=== PATIENT | female | born 1980 | race American Indian/Alaskan Native ===

== ENCOUNTER 2017-02-09 17:09 | Emergency (ER) | payer MEDICAID ==
--- NOTE | 2017-02-09 17:25 | EDM.PDOC ---
ED HISTORY OF PRESENT ILLNESS - General Chief Complaint: Chest Pain Stated Complaint: CHEST PAIN Time Seen by Provider: 02/09/17 17:24 Source of Information: Reports: Patient, RN, RN notes reviewed History Limitations: Reports: No limitations - History of Present Illness INITIAL COMMENTS - FREE TEXT/NARRATIVE: Onset of low midline chest and epigastric pain one hour prior to arrival to ER at approximately 1 hour after eating salad and cheese soup for dinner. Describes pain or spasms or cramping. Denies radiating pain. Admits to mild nausea. Symptom Onset Date: 02/09/17 Timing/Duration: Reports: Hour(s): (1) Severity: moderate Location, General: Reports: other (epigastric) Quality: Reports: Ache Improves with: Reports: None Worsens with: Reports: None Associated Symptoms (General): Reports: no other symptoms - Related Data Allergies/ADRs: Allergies Allergy/AdvReac Type Severity Reaction Status Date / Time tetracycline [Tetracycline] Allergy Nausea Verified 02/09/17 17:39 Home Meds: Home Meds traZODone HCl [Trazodone HCl] 1 tab PO BEDTIME 08/17/15 [History] Multivitamins [Tab-A-Leo] 1 tab PO DAILY 03/03/16 [History] Cephalexin [Keflex] 0 mg PO ASDIRECTED 02/09/17 [History] Past Medical History - Past Health History Medical/Surgical History: Denies Medical/Surgical History Gastrointestinal History: Reports: GERD Other Gastrointestinal History: constipation with rectal bleed 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: Psychiatric History: Reports: Anxiety, Depression Other Dermatologic History: Rosacea, acne - Infectious Disease History Infectious Disease History: Reports: Chicken pox - Past Surgical History GI Surgical History: Reports: Cholecystectomy, Colonoscopy Social & Family History - Family History Family Medical History: Noncontributory - Tobacco Use Smoking Status *Q: Current Every Day Smoker Years of Tobacco use: 15 Packs/Tins Daily: 0.5 Used Tobacco, but Quit: No Second Hand Smoke Exposure: Yes - Alcohol Use Days Per Week of Alcohol Use: 0 - Recreational Drug Use Recreational Drug Use: No ED ROS GENERAL - Review of Systems Review Of Systems: ROS reveals no pertinent complaints other than HPI. ED EXAM, GENERAL - Physical Exam Exam: See Below Exam Limited By: No limitations General Appearance: alert, WD/WN, no apparent distress Eye Exam: bilateral eye: normal inspection Ears: normal external exam, normal canal, hearing grossly normal, normal TMs Nose: normal inspection, normal mucosa, no blood Throat/Mouth: Normal inspection, Normal lips, Normal teeth, Normal gums, Normal oropharynx, Normal voice, No airway compromise Head: atraumatic, normocephalic Neck: normal inspection, supple, non-tender, full range of motion Respiratory/Chest: no respiratory distress, lungs clear, normal breath sounds, no accessory muscle use, chest non-tender Cardiovascular: normal peripheral pulses, regular rate, rhythm, no edema, no gallop, no JVD, no murmur, no rub GI/Abdominal: other (mild epigastric tenderness.) Back Exam: normal inspection, full range of motion, NT Extremities: normal inspection, normal range of motion, non-tender, normal capillary refill, no pedal edema Neurological: alert, oriented, CN II-XII intact, normal cognition, normal gait, normal reflexes, no motor/sensory deficits Psychiatric: normal affect, normal mood Skin Exam: Warm, Dry, Intact, Normal color, No rash EKG INTERPRETATION EKG Date: 02/09/17 Time: 17:18 Rhythm: other (sinus rhythm) Rate (beats/min): 67 [place]: normal P-wave: present QRS: other (isolated Q in lead 3.) ST-T: normal QT: normal Course - Vital Signs Last Recorded V/S: Last Vital Signs Temp 36.6 C 02/09/17 17:43 Pulse 71 02/09/17 17:43 Resp 18 02/09/17 17:43 BP 104/56 L 02/09/17 17:43 Pulse Ox 97 02/09/17 17:43 - Orders/Labs/Meds Orders: Active Orders 24 hr Category Date Time Status EKG 12 Lead [EKG Documentation Completion] [RC] STAT Care 02/09/17 17:30 Active Labs: Laboratory Tests 02/09/17 02/09/17 Range/Units 17:55 17:55 WBC 5.5 (5.0-10.0) 10^3/uL RBC 3.78 L (4.2-5.4) 10^6/uL Hgb 11.0 L (12.0-16.0) g/dL Hct 33.3 L (37.0-47.0) % MCV 88.1 (80-100) fL MCH 29.1 (27.0-34.0) pg MCHC 33.0 (33.0-35.0) g/dL Plt Count 245 (150-450) 10^3/uL Neut % (Auto) 57.3 (42.2-75.2) % Lymph % (Auto) 32.9 (20.5-50.1) % [place] % (Auto) 6.5 (2-8) % Eos % (Auto) 2.9 (1.0-3.0) % Baso % (Auto) 0.4 (0.0-1.0) % Sodium 136 (135-145) mmol/L Potassium 3.2 L (3.6-5.0) mmol/L Chloride 104 (101-111) mmol/L Carbon Dioxide 24.0 (21.0-31.0) mmol/L Anion Gap 11.2 BUN 10 (7-18) mg/dL Creatinine 0.7 (0.6-1.3) mg/dL Est Cr Clr Drug Dosing 100.94 mL/min Estimated GFR (MDRD) > 60 BUN/Creatinine Ratio 14.28 Glucose 146 H (74-105) mg/dL Calcium 8.5 (8.4-10.2) mg/dl Total Bilirubin 0.2 (0.2-1.0) mg/dL AST 23 (10-42) IU/L ALT 19 (10-60) IU/L Alkaline Phosphatase 61 (42-121) IU/L Troponin I < 0.02 (0.00-0.02) ng/ml Total Protein 6.4 L (6.7-8.2) g/dl Albumin 3.9 (3.2-5.5) g/dl Globulin 2.5 Albumin/Globulin Ratio 1.56 Amylase 28 (28-100) U/L Lipase 25 (22-51) U/L Departure - Departure Time of Disposition: 18:41 Disposition: Home, Self-Care 01 Condition: good Clinical Impression: Epigastric pain, Esophageal spasm Instructions: Esophageal Spasm Forms: ED Department Discharge Additional Instructions: Low fat and blad diet. Follow up in clinic this week if symptoms do not improve. - My Orders Last 24 Hours: My Active Orders 02/09/17 17:30 EKG 12 Lead [EKG Documentation Completion] [RC] STAT - Assessment/Plan Last 24 Hours: My Active Orders 02/09/17 17:30 EKG 12 Lead [EKG Documentation Completion] [RC] STAT
[2017-02-09 17:47] VITALS: BP 104/56
[2017-02-09 18:19] LABS: CHLORIDE,CL 104 mmol/L (101-111); SODIUM,NA 136 mmol/L (135-145)
--- NOTE | 2017-03-04 13:17 | EKG ---
02/09/2017- AHSAN, APRIL ANDRZEJ - This is a standard 12-lead EKG showing normal sinus rhythm with a heart rate of 67 beats per minute. Normal [place] interval and QRS duration. No significant ST- Tchanges. Normal EKG. [facility] /[id number] [facility]
== END 2017-02-09 19:00 | disposition home or self-care (01) ==
LOC: DL.ED 17:09
DX: K22.4 Dyskinesia of esophagus (principal); K21.9 Gastro-esophageal reflux disease without esophagitis; F41.9 Anxiety disorder, unspecified; F32.9 Major depressive disorder, single episode, unspecified; F17.210 Nicotine dependence, cigarettes, uncomplicated; Z88.1 Allergy status to other antibiotic agents; Z79.899 Other long term (current) drug therapy; Z90.49 Acquired absence of other specified parts of digestive tract
CPT/HCPCS: 36415; 80053; 82150; 83690; 84484; 85025; 93005; 99285

== ENCOUNTER 2017-03-31 10:36 | Emergency (ER) | payer SELFPAY ==
[2017-03-31 11:01] VITALS: BP 115/72
--- NOTE | 2017-03-31 11:14 | EDM.PDOC ---
ED HPI GENERAL MEDICAL PROBLEM - General Chief Complaint: General Stated Complaint: TASTE BUDS ESTUARDO [id number] Time Seen by Provider: 03/31/17 11:14 Source of Information: Reports: Patient History Limitations: Reports: No Limitations - History of Present Illness INITIAL COMMENTS - FREE TEXT/NARRATIVE: Patient has had an inflammed tongue an sensation of change in taste. She notes with sore or spicy food she feels like her tongue chaparro or has a bitter taste. She is on an antibiotic for acne and talked to her provider about this but was told to keep on antibiotic. She has been on a toothpaste with a chris about the time this started. Denies acid reflux, dental problems,excessively dry mouth /tongue. She is a smoker and has tried cutting down on cigarettes. - Related Data Allergies Allergy/AdvReac Type Severity Reaction Status Date / Time tetracycline [Tetracycline] Allergy Nausea Verified 03/31/17 10:58 Home Meds: Home Meds traZODone HCl [Trazodone HCl] 1 tab PO BEDTIME 08/17/15 [History] Multivitamins [Tab-A-Leo] 1 tab PO DAILY 03/03/16 [History] Cephalexin [Keflex] 0 mg PO ASDIRECTED 02/09/17 [History] Past Medical History - Past Health History Medical/Surgical History: Denies Medical/Surgical History HEENT History: Reports: None Cardiovascular History: Reports: None Respiratory History: Reports: None Gastrointestinal History: Reports: GERD Other Gastrointestinal History: constipation with rectal bleed Genitourinary History: Reports: None 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: Musculoskeletal History: Reports: None Neurological History: Reports: None Psychiatric History: Reports: Anxiety, Depression Endocrine/Metabolic History: Reports: None Hematologic History: Reports: None Immunologic History: Reports: None Oncologic (Cancer) History: Reports: None Other Dermatologic History: Rosacea, acne - Infectious Disease History Infectious Disease History: Reports: Chicken Pox - Past Surgical History HEENT Surgical History: Reports: Oral Surgery GI Surgical History: Reports: Cholecystectomy, Colonoscopy Social & Family History - Family History Family Medical History: Noncontributory - Tobacco Use Smoking Status *Q: Current Every Day Smoker Years of Tobacco use: 15 Packs/Tins Daily: 0.7 Used Tobacco, but Quit: No Second Hand Smoke Exposure: Yes - Caffeine Use Caffeine Use: Reports: Coffee - Alcohol Use Days Per Week of Alcohol Use: 0 - Recreational Drug Use Recreational Drug Use: No ED ROS GENERAL - Review of Systems Review Of Systems: See Below Constitutional: Reports: No Symptoms HEENT: Reports: Other (approx 2 month h/o change in taste with bitter taste with spicy and sore foods. she feels tongue has been more swollen and red and taste buds more pronounced.) ED EXAM, GENERAL - Physical Exam Exam: See Below Exam Limited By: No Limitations General Appearance: Alert Ears: Normal External Exam, Normal Canal, Normal TMs Nose: Normal Inspection, Normal Mucosa Throat/Mouth: Normal Inspection, Normal Lips, Normal Teeth, Normal Gums, Normal Oropharynx, Normal Voice, No Airway Compromise Head: Atraumatic, Normocephalic Neck: Normal Inspection, Supple, Non-Tender Neurological: Alert Course - Vital Signs Text/Narrative:: No focal lesions noted on tongue. Tongue appears non-inflammed, no edema. Appears normal geography. Advise many reasons for tongue discomfort. Meds, topical chem such as toothpaste, dental issues, gastric issues. Advise d/c smoking. D/C toothpaste with chris. Avoid spicy and sore foods, anything that inflames tongue. Keep fluid intake up. See pcp if no improvement and consider referral to ENT. Last Recorded V/S: Last Vital Signs Temp 36.8 C 03/31/17 10:59 Pulse 85 03/31/17 10:59 Resp 16 03/31/17 10:59 BP 115/72 03/31/17 10:59 Pulse Ox 98 03/31/17 10:59 Departure - Departure Time of Disposition: 11:26 Disposition: Home, Self-Care 01 Condition: good Clinical Impression: Dysgeusia - Discharge Information Forms: ED Department Discharge Additional Instructions: It can be difficult to determine the exact etiology of tongue discomfort. Advise discontinuing toothpaste with chris. Keep fluid intake up. Avoid sore and spicy foods. See your provider and discuss if persists, you may need an evaluation by ENT.
== END 2017-03-31 11:34 | disposition home or self-care (01) ==
LOC: DL.ED 10:36
DX: R43.2 Parageusia (principal); K21.9 Gastro-esophageal reflux disease without esophagitis; F41.9 Anxiety disorder, unspecified; F32.9 Major depressive disorder, single episode, unspecified; F17.210 Nicotine dependence, cigarettes, uncomplicated; Z88.8 Allergy status to other drugs, medicaments and biological substances; Z79.899 Other long term (current) drug therapy; Z90.49 Acquired absence of other specified parts of digestive tract; Z98.890 Other specified postprocedural states
CPT/HCPCS: 99282

== ENCOUNTER 2017-04-15 19:14 | Emergency (ER) | payer SELFPAY ==
[2017-04-15 20:01] LABS: CHLORIDE,CL 106 mmol/L (101-111); SODIUM,NA 140 mmol/L (135-145)
[2017-04-15 20:43] VITALS: BP 105/63
--- NOTE | 2017-04-15 21:30 | EDM.PDOC ---
ED HPI GENERAL MEDICAL PROBLEM - General Chief Complaint: Chest Pain Stated Complaint: CHEST PAINS, [id number] Time Seen by Provider: 04/15/17 21:15 Source of Information: Reports: Patient - History of Present Illness INITIAL COMMENTS - FREE TEXT/NARRATIVE: c/o severe epigastric pain radiating around to back bilaterally after eating supper of "taco in a bag" brief nausea, no vomiting. No fever or chills. Tried tums but didn't help. At time of exam pain has resolved Onset: Today Location: Reports: Abdomen Epigastric Pain Score (Numeric/FACES): 3 - Related Data Allergies Allergy/AdvReac Type Severity Reaction Status Date / Time tetracycline [Tetracycline] Allergy Nausea Verified 04/15/17 19:26 Home Meds: Home Meds traZODone HCl [Trazodone HCl] 1 tab PO BEDTIME 08/17/15 [History] Multivitamins [Tab-A-Leo] 1 tab PO DAILY 03/03/16 [History] Past Medical History - Past Health History Medical/Surgical History: Denies Medical/Surgical History HEENT History: Reports: None Cardiovascular History: Reports: None Respiratory History: Reports: None Gastrointestinal History: Reports: GERD Other Gastrointestinal History: constipation with rectal bleed Genitourinary History: Reports: None 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: Musculoskeletal History: Reports: None Neurological History: Reports: None Psychiatric History: Reports: Anxiety, Depression Endocrine/Metabolic History: Reports: None Hematologic History: Reports: None Immunologic History: Reports: None Oncologic (Cancer) History: Reports: None Other Dermatologic History: Rosacea, acne - Infectious Disease History Infectious Disease History: Reports: Chicken Pox - Past Surgical History HEENT Surgical History: Reports: Oral Surgery GI Surgical History: Reports: Cholecystectomy, Colonoscopy Social & Family History - Family History Family Medical History: Noncontributory - Tobacco Use Smoking Status *Q: Never Smoker Years of Tobacco use: 15 Packs/Tins Daily: 0.7 Used Tobacco, but Quit: No Second Hand Smoke Exposure: Yes - Caffeine Use Caffeine Use: Reports: Coffee - Alcohol Use Days Per Week of Alcohol Use: 0 - Recreational Drug Use Recreational Drug Use: No ED ROS GENERAL - Review of Systems Review Of Systems: ROS reveals no pertinent complaints other than HPI. ED EXAM, GI/ABD - Physical Exam Exam: See Below Exam Limited By: No Limitations General Appearance: Alert, No Apparent Distress Eyes: Bilateral: EOMI Ears: Normal External Exam Nose: Normal Inspection Respiratory/Chest: No Respiratory Distress, Lungs Clear Cardiovascular: Normal Peripheral Pulses, Regular Rate, Rhythm GI/Abdominal: Normal Bowel Sounds, Soft, Non-Tender. No: Distention, Guarding, Rebound Back Exam: Normal Inspection Course - Vital Signs Last Recorded V/S: Last Vital Signs Temp 96.6 F 04/15/17 20:42 Pulse 63 04/15/17 20:42 Resp 26 H 04/15/17 20:42 BP 105/63 04/15/17 20:42 Pulse Ox 93 L 04/15/17 20:42 - Orders/Labs/Meds Orders: Active Orders 24 hr Category Date Time Status EKG Documentation Completion [RC] STAT Care 04/15/17 19:27 Active Labs: Laboratory Tests 04/15/17 04/15/17 04/15/17 Range/Units 19:34 19:34 19:40 WBC 6.1 (5.0-10.0) 10^3/uL RBC 4.00 L (4.2-5.4) 10^6/uL Hgb 11.3 L (12.0-16.0) g/dL Hct 34.8 L (37.0-47.0) % MCV 87.0 (80-100) fL MCH 28.3 (27.0-34.0) pg MCHC 32.5 L (33.0-35.0) g/dL Plt Count 224 (150-450) 10^3/uL Neut % (Auto) 62.9 (42.2-75.2) % Lymph % (Auto) 30.3 (20.5-50.1) % [place] % (Auto) 5.3 (2-8) % Eos % (Auto) 1.3 (1.0-3.0) % Baso % (Auto) 0.2 (0.0-1.0) % Add Manual Diff Yes Neutrophils % (Manual) 70 % Lymphocytes % (Manual) 25 % Monocytes % (Manual) 4 % Eosinophils % (Manual) 1 % Sodium 140 (135-145) mmol/L Potassium 3.5 L (3.6-5.0) mmol/L Chloride 106 (101-111) mmol/L Carbon Dioxide 23.0 (21.0-31.0) mmol/L Anion Gap 14.5 BUN 9 (7-18) mg/dL Creatinine 0.7 (0.6-1.3) mg/dL Est Cr Clr Drug Dosing 99.98 mL/min Estimated GFR (MDRD) > 60 BUN/Creatinine Ratio 12.85 Glucose 107 H (74-105) mg/dL Calcium 8.7 (8.4-10.2) mg/dl Total Bilirubin 0.4 (0.2-1.0) mg/dL AST 23 (10-42) IU/L ALT 18 (10-60) IU/L Alkaline Phosphatase 69 (42-121) IU/L Troponin I < 0.02 (0.00-0.02) ng/ml Total Protein 6.5 L (6.7-8.2) g/dl Albumin 3.9 (3.2-5.5) g/dl Globulin 2.6 Albumin/Globulin Ratio 1.50 Amylase 28 (28-100) U/L Lipase 28 (22-51) U/L Urine Color Yellow (YELLOW) Urine Appearance Slightly cloudy (CLEAR) Urine pH 6.0 (5.0-9.0) Ur Specific [place] 1.020 (1.005-1.030) Urine Protein Negative (NEGATIVE) Urine Glucose (UA) Negative (NEGATIVE) Urine Ketones Trace H (NEGATIVE) Urine Occult Blood Negative (NEGATIVE) Urine Nitrite Negative (NEGATIVE) Urine Bilirubin Negative (NEGATIVE) Urine Urobilinogen 0.2 (0.2-1.0) mg/dL Ur Leukocyte Esterase Trace H (NEGATIVE) Urine RBC 0-5 /HPF Urine WBC 0-5 (0-5/HPF) /HPF Ur Epithelial Cells Few /HPF Urine Bacteria Rare (0-FEW/HPF) /HPF Urine Mucus Few H /LPF Urine HCG, Qual Urine Opiates Screen (NEGATIVE) Ur Oxycodone Screen (NEGATIVE) Urine Methadone Screen (NEGATIVE) Ur Barbiturates Screen (NEGATIVE) U Tricyclic Antidepress (NEGATIVE) Ur Phencyclidine Scrn (NEGATIVE) Ur Amphetamine Screen (NEGATIVE) U Methamphetamines Scrn (NEGATIVE) Urine MDMA Screen (NEGATIVE) U Benzodiazepines Scrn (NEGATIVE) Urine Cocaine Screen (NEGATIVE) U Marijuana (THC) Screen (NEGATIVE) 04/15/17 04/15/17 Range/Units 19:40 19:40 WBC (5.0-10.0) 10^3/uL RBC (4.2-5.4) 10^6/uL Hgb (12.0-16.0) g/dL Hct (37.0-47.0) % MCV (80-100) fL MCH (27.0-34.0) pg MCHC (33.0-35.0) g/dL Plt Count (150-450) 10^3/uL Neut % (Auto) (42.2-75.2) % Lymph % (Auto) (20.5-50.1) % [place] % (Auto) (2-8) % Eos % (Auto) (1.0-3.0) % Baso % (Auto) (0.0-1.0) % Add Manual Diff Neutrophils % (Manual) % Lymphocytes % (Manual) % Monocytes % (Manual) % Eosinophils % (Manual) % Sodium (135-145) mmol/L Potassium (3.6-5.0) mmol/L Chloride (101-111) mmol/L Carbon Dioxide (21.0-31.0) mmol/L Anion Gap BUN (7-18) mg/dL Creatinine (0.6-1.3) mg/dL Est Cr Clr Drug Dosing mL/min Estimated GFR (MDRD) BUN/Creatinine Ratio Glucose (74-105) mg/dL Calcium (8.4-10.2) mg/dl Total Bilirubin (0.2-1.0) mg/dL AST (10-42) IU/L ALT (10-60) IU/L Alkaline Phosphatase (42-121) IU/L Troponin I (0.00-0.02) ng/ml Total Protein (6.7-8.2) g/dl Albumin (3.2-5.5) g/dl Globulin Albumin/Globulin Ratio Amylase (28-100) U/L Lipase (22-51) U/L Urine Color (YELLOW) Urine Appearance (CLEAR) Urine pH (5.0-9.0) Ur Specific [place] (1.005-1.030) Urine Protein (NEGATIVE) Urine Glucose (UA) (NEGATIVE) Urine Ketones (NEGATIVE) Urine Occult Blood (NEGATIVE) Urine Nitrite (NEGATIVE) Urine Bilirubin (NEGATIVE) Urine Urobilinogen (0.2-1.0) mg/dL Ur Leukocyte Esterase (NEGATIVE) Urine RBC /HPF Urine WBC (0-5/HPF) /HPF Ur Epithelial Cells /HPF Urine Bacteria (0-FEW/HPF) /HPF Urine Mucus /LPF Urine HCG, Qual Negative Urine Opiates Screen Negative (NEGATIVE) Ur Oxycodone Screen Positive H (NEGATIVE) Urine Methadone Screen Negative (NEGATIVE) Ur Barbiturates Screen Negative (NEGATIVE) U Tricyclic Antidepress Negative (NEGATIVE) Ur Phencyclidine Scrn Negative (NEGATIVE) Ur Amphetamine Screen Negative (NEGATIVE) U Methamphetamines Scrn Negative (NEGATIVE) Urine MDMA Screen Negative (NEGATIVE) U Benzodiazepines Scrn Negative (NEGATIVE) Urine Cocaine Screen Negative (NEGATIVE) U Marijuana (THC) Screen Negative (NEGATIVE) Departure - Departure Time of Disposition: 21:27 Disposition: Home, Self-Care 01 Condition: good Clinical Impression: Epigastric pain, Epigastric discomfort Abdominal pain Qualifiers: Abdominal location: upper abdomen, unspecified Qualified Code(s): R10.10 - Upper abdominal pain, unspecified - Discharge Information Instructions: Gastroesophageal Reflux Disease, Adult Referrals: Bernadette Dietz [Primary Care Provider] - Forms: ED Department Discharge Additional Instructions: light low fat diet follow up with primary care provider if symptoms are recurrent with greasy foods - My Orders Last 24 Hours: My Active Orders 04/15/17 19:27 EKG Documentation Completion [RC] STAT - Assessment/Plan Last 24 Hours: My Active Orders 04/15/17 19:27 EKG Documentation Completion [RC] STAT
--- NOTE | 2017-04-17 13:35 | EKG ---
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 [facility] /[id number]
== END 2017-04-15 21:32 | disposition home or self-care (01) ==
LOC: DL.ED 19:14
DX: R10.13 Epigastric pain (principal); K21.9 Gastro-esophageal reflux disease without esophagitis; F41.9 Anxiety disorder, unspecified; F32.9 Major depressive disorder, single episode, unspecified; Z90.49 Acquired absence of other specified parts of digestive tract; Z79.899 Other long term (current) drug therapy; Z88.1 Allergy status to other antibiotic agents; Z98.890 Other specified postprocedural states
CPT/HCPCS: 36415; 80053; 80305; 81001; 81025; 82150; 83690; 84484; 85025; 93005; 93010; 99282; 99285

== ENCOUNTER 2017-05-21 20:27 | Emergency (ER) | payer MEDICAID ==
[2017-05-21 20:38] VITALS: BP 108/49
--- NOTE | 2017-05-21 21:11 | EDM.PDOC ---
ED HPI GENERAL MEDICAL PROBLEM - General Chief Complaint: ENT Problem Stated Complaint: THROAT IS PAINFUL, [id number] Time Seen by Provider: 05/21/17 21:00 Source of Information: Reports: Patient History Limitations: Reports: No Limitations - History of Present Illness INITIAL COMMENTS - FREE TEXT/NARRATIVE: c/o mild sore throat and congestion for one week, was seen in clinic and instructed to take claritin type allergy medication. Noteing increased sore throat on right with ear pain, No relief with tylenol, mild improvement with gargle with salt water. No known fevers. Right Throat Pain Score (Numeric/FACES): 6 - Related Data Allergies Allergy/AdvReac Type Severity Reaction Status Date / Time tetracycline [Tetracycline] Allergy Nausea Verified 05/21/17 20:37 Home Meds: Home Meds traZODone HCl [Trazodone HCl] 1 tab PO BEDTIME 08/17/15 [History] Multivitamins [Tab-A-Leo] 1 tab PO DAILY 03/03/16 [History] Loratadine [Claritin] 10 mg PO DAILY 05/21/17 [History] Omeprazole 20 mg PO DAILY 05/21/17 [History] Past Medical History - Past Health History Medical/Surgical History: Denies Medical/Surgical History HEENT History: Reports: None Cardiovascular History: Reports: None Respiratory History: Reports: None Gastrointestinal History: Reports: GERD Other Gastrointestinal History: constipation with rectal bleed Genitourinary History: Reports: 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: Musculoskeletal History: Reports: None Neurological History: Reports: None Psychiatric History: Reports: Anxiety, Depression Endocrine/Metabolic History: Reports: None Hematologic History: Reports: None Immunologic History: Reports: None Oncologic (Cancer) History: Reports: None Other Dermatologic History: Rosacea, acne - Infectious Disease History Infectious Disease History: Reports: Chicken Pox - Past Surgical History HEENT Surgical History: Reports: Oral Surgery GI Surgical History: Reports: Cholecystectomy, Colonoscopy Female Surgical History: Reports: Section Social & Family History - Family History Family Medical History: Noncontributory - Tobacco Use Smoking Status *Q: Current Every Day Smoker Years of Tobacco use: 15 Packs/Tins Daily: 0.4 Used Tobacco, but Quit: No Second Hand Smoke Exposure: Yes - Caffeine Use Caffeine Use: Reports: Coffee - Alcohol Use Days Per Week of Alcohol Use: 0 - Recreational Drug Use Recreational Drug Use: No ED ROS ENT - Review of Systems Review Of Systems: See Below Constitutional: Reports: No Symptoms HEENT: Reports: Ear Pain, Sinus Problem, Throat Pain Respiratory: Reports: No Symptoms. Denies: Cough Cardiovascular: Reports: No Symptoms GI/Abdominal: Reports: No Symptoms Musculoskeletal: Reports: No Symptoms Skin: Reports: No Symptoms ED EXAM, ENT - Physical Exam Exam: See Below Exam Limited By: No Limitations General Appearance: Alert, Mild Distress Eye Exam: Bilateral Eye: EOMI Ears: Normal External Exam, TM Erythema (right with fluid), TM Fluid (left without redness) Nose: Normal Inspection Mouth/Throat: Pharyngeal Erythema (right) Head: Atraumatic, Normocephalic Neck: Full Range of Motion, Lymphadenopathy (R). No: Lymphadenopathy (L) Respiratory/Chest: No Respiratory Distress, Lungs Clear, Normal Breath Sounds Cardiovascular: Normal Peripheral Pulses, Regular Rate, Rhythm GI/Abdominal: Normal Bowel Sounds Psychiatric: Normal Affect, Normal Mood Skin: Warm, Dry, Intact, Normal Color, No Rash Course - Vital Signs Last Recorded V/S: Last Vital Signs Temp 97.8 F 05/21/17 20:33 Pulse 64 05/21/17 20:33 Resp 18 05/21/17 20:33 BP 108/49 L 05/21/17 20:33 Pulse Ox 100 05/21/17 20:33 - Orders/Labs/Meds Orders: Active Orders 24 hr Category Date Time Status CULTURE STREP A CONFIRMATION [RM] Stat Lab 05/21/17 21:06 Results STREP SCRN A RAPID W CULT CONF [RM] Stat Lab 05/21/17 21:06 Results Meds: Medications Discontinued Medications Generic Name Dose Route Start Last Admin Trade Name Morenita PRN Reason Stop Dose Admin Amoxicillin 500 mg 05/21/17 21:38 05/21/17 21:51 Amoxil PO 05/21/17 21:39 500 mg ONETIME ONE Administration Departure - Departure Time of Disposition: 21:36 Disposition: Home, Self-Care 01 Condition: Good Clinical Impression: Otitis media Qualifiers: Otitis media type: serous Chronicity: acute Laterality: right Recurrence: not specified as recurrent Qualified Code(s): H65.01 - Acute serous otitis media, right ear Pharyngitis Qualifiers: Pharyngitis/tonsillitis etiology: unspecified etiology Qualified Code(s): J02.9 - Acute pharyngitis, unspecified - Discharge Information Instructions: Otitis Media With Effusion Referrals: PCP,None [Ordering Only Provider] - Forms: ED Department Discharge Additional Instructions: alternate tylenol and ibuprofen every 4 hours as needed for fever/ discomfort amoxicillin 500mg one three times daily for one week clinic if not improving salt water gargle - My Orders Last 24 Hours: My Active Orders 05/21/17 21:06 CULTURE STREP A CONFIRMATION [RM] Stat STREP SCRN A RAPID W CULT CONF [] Stat - Assessment/Plan Last 24 Hours: My Active Orders 05/21/17 21:06 CULTURE STREP A CONFIRMATION [RM] Stat STREP SCRN A RAPID W CULT CONF [] Stat
[2017-05-21] MEDS ORDERED: Amoxicillin 500 MG Cap PO ONE (21:38)
== END 2017-05-21 21:54 | disposition home or self-care (01) ==
LOC: DL.ED 20:27
DX: H65.01 Acute serous otitis media, right ear (principal); J02.9 Acute pharyngitis, unspecified; K21.9 Gastro-esophageal reflux disease without esophagitis; Z90.49 Acquired absence of other specified parts of digestive tract; F17.210 Nicotine dependence, cigarettes, uncomplicated; Z88.1 Allergy status to other antibiotic agents; Z79.899 Other long term (current) drug therapy
CPT/HCPCS: 87081; 87430; 99283; A9270

== ENCOUNTER 2017-10-13 06:20 | Emergency (ER) | payer OTHER, MEDICAID ==
[2017-10-13] MEDS ORDERED: Ketorolac 30 MG/ML SDV IVPUSH ONE (07:06)
[2017-10-13] MEDS ORDERED: Sodium Chloride 0.9% 10 ML Syringe FLUSH PRN (07:06)
[2017-10-13] MEDS ORDERED: Sodium Chloride 0.9% 1,000 ML IV ONE (07:07)
--- NOTE | 2017-10-13 08:08 | EDM.PDOC ---
ED HPI GENERAL MEDICAL PROBLEM - General Chief Complaint: Headache Stated Complaint: HEADACHE X3 DAYS [id number] Time Seen by Provider: 10/13/17 06:52 Source of Information: Reports: Patient, RN, RN Notes Reviewed History Limitations: Reports: No Limitations - History of Present Illness INITIAL COMMENTS - FREE TEXT/NARRATIVE: Pt presents to the ER with c/o headache and neckache. She states she has had the diffuse headache for about 3 days. She states when she moves around the pain is 8/10, and not as bothersome if she does not move. She admits to a cough , fever, chills, nausea, and decreased appetite. She denies sore throat, vomiting, or diarrhea. She states she was seen in ER in [place] on for the same problem. She states she had a head CT done and she was diagnosed with sinusitis. She states she was given "an IV" while there. She states she has been using Flonase, Sudafed, and Tylenol. 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 Headache Pain Score (Numeric/FACES): 8 - Related Data Allergies Allergy/AdvReac Type Severity Reaction Status Date / Time tetracycline [Tetracycline] Allergy Nausea Verified 10/13/17 06:40 Home Meds: Home Meds traZODone HCl [Trazodone HCl] 1 tab PO BEDTIME 08/17/15 [History] Multivitamins [Tab-A-Leo] 1 tab PO DAILY 03/03/16 [History] Loratadine [Claritin] 10 mg PO DAILY 05/21/17 [History] Omeprazole 20 mg PO DAILY 05/21/17 [History] Past Medical History - Past Health History Medical/Surgical History: Denies Medical/Surgical History HEENT History: Reports: None Cardiovascular History: Reports: None Respiratory History: Reports: None Gastrointestinal History: Reports: GERD Other Gastrointestinal History: constipation with rectal bleed Genitourinary History: Reports: None 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: Musculoskeletal History: Reports: None Neurological History: Reports: None Psychiatric History: Reports: Anxiety, Depression Endocrine/Metabolic History: Reports: None Hematologic History: Reports: None Immunologic History: Reports: None Oncologic (Cancer) History: Reports: None Other Dermatologic History: Rosacea, acne - Infectious Disease History Infectious Disease History: Reports: Chicken Pox - Past Surgical History HEENT Surgical History: Reports: Oral Surgery GI Surgical History: Reports: Cholecystectomy, Colonoscopy Female Surgical History: Reports: Section Social & Family History - Family History Family Medical History: Noncontributory - Tobacco Use Smoking Status *Q: Current Every Day Smoker Years of Tobacco use: 15 Packs/Tins Daily: 6 Used Tobacco, but Quit: No Second Hand Smoke Exposure: Yes - Caffeine Use Caffeine Use: Reports: Coffee, Soda, Tea - Alcohol Use Days Per Week of Alcohol Use: 0 - Recreational Drug Use Recreational Drug Use: No ED ROS GENERAL - Review of Systems Review Of Systems: ROS reveals no pertinent complaints other than HPI. - Physical Exam Exam: See Below Exam Limited By: No Limitations General Appearance: Alert, WD/WN, No Apparent Distress Eye Exam: Bilateral Eye: EOMI, Normal Inspection Ears: Normal External Exam, Normal Canal, Hearing Grossly Normal, Normal TMs Nose: Normal Inspection Throat/Mouth: Normal Inspection, Normal Voice, No Airway Compromise Head Exam: Atraumatic, Normocephalic Neck: Normal Inspection, Supple, Non-Tender, Full Range of Motion Respiratory/Chest: No Respiratory Distress, Lungs Clear, Normal Breath Sounds, No Accessory Muscle Use, Chest Non-Tender Cardiovascular: Normal Peripheral Pulses, Regular Rate, Rhythm, No Edema, No Gallop, No JVD, No Murmur, No Rub GI/Abdominal: Normal Bowel Sounds, Soft, Non-Tender, No Organomegaly, No Distention, No Abnormal Bruit, No Mass (Female) Exam: Deferred Rectal (Female) Exam: Deferred Neuro Exam (Abbreviated): Alert, Oriented, CN II-XII Intact, Normal Cognition, Normal Gait, Normal Reflexes, No Motor/Sensory Deficits Back Exam: Normal Inspection, Full Range of Motion, NT Extremities: Normal Inspection, Normal Range of Motion, Non-Tender, No Pedal Edema, Normal Capillary Refill Psychiatric: Normal Affect, Normal Mood Skin Exam: Warm, Dry, Intact, Normal Color, No Rash Course - Vital Signs Last Recorded V/S: Last Vital Signs Temp 97.4 F 10/13/17 06:27 Pulse 67 12/10/17 08:15 Resp 16 10/13/17 08:15 BP 107/69 10/13/17 08:15 Pulse Ox 99 10/13/17 08:15 - Orders/Labs/Meds Orders: Active Orders 24 hr Category Date Time Status Peripheral IV Care [RC] . DIRECTED Care 10/13/17 07:07 Active Peripheral IV Insertion Adult [OM.PC] Stat Oth 10/13/17 07:05 Ordered Meds: Medications Discontinued Medications Generic Name Dose Route Start Last Admin Trade Name Freq PRN Reason Stop Dose Admin Sodium Chloride 1,000 mls @ 999 mls/hr 10/13/17 07:07 10/13/17 07:14 Normal Saline IV 10/13/17 08:07 999 mls/hr .BOLUS ONE Administration Ketorolac Tromethamine 30 mg 10/13/17 07:06 10/13/17 07:13 Toradol IVPUSH 10/13/17 07:07 30 mg ONETIME ONE Administration Orphenadrine Citrate 60 mg 10/13/17 07:15 10/13/17 07:15 Norflex IM 60 mg Q12H AVILA Administration Sodium Chloride 10 ml 10/13/17 07:06 10/13/17 07:14 Saline Flush FLUSH 10 ml ASDIRECTED PRN Administration Keep Vein Open Departure - Departure Time of Disposition: 08:05 Disposition: Home, Self-Care 01 Condition: Fair Clinical Impression: Headache Qualifiers: Headache type: unspecified Headache chronicity pattern: unspecified pattern Intractability: not intractable Qualified Code(s): R51 - Headache - Discharge Information Instructions: General Headache Without Cause, [id number] Referrals: PCP,None [Primary Care Provider] - Forms: ED Department Discharge Additional Instructions: Drink plenty of fluids Continue decongestants, flonase, Tylenol or ibuprofen for pain/fever Rest in a dark room - My Orders Last 24 Hours: My Active Orders 10/13/17 07:05 Peripheral IV Insertion Adult [OM.PC] Stat 10/13/17 07:07 Peripheral IV Care [RC] . DIRECTED - Assessment/Plan Last 24 Hours: My Active Orders 10/13/17 07:05 Peripheral IV Insertion Adult [OM.PC] Stat 10/13/17 07:07 Peripheral IV Care [RC] . DIRECTED
[2017-10-13 08:16] VITALS: BP 107/69
== END 2017-10-13 08:15 | disposition home or self-care (01) ==
LOC: DL.ED 06:20
DX: R51 Headache (principal); F17.210 Nicotine dependence, cigarettes, uncomplicated; Z88.1 Allergy status to other antibiotic agents; Z79.899 Other long term (current) drug therapy
CPT/HCPCS: 96361; 96372; 96374; 99283; J1885; J2360; J7030; J7050

== ENCOUNTER 2019-11-06 00:53 | Emergency (ER) | payer BC, MEDICAID, OTHER ==
[2019-11-06 03:59] LABS: ANION GAP 11.3; CHLORIDE,CL 105 mmol/L (101-111); SODIUM,NA 138 mmol/L (135-145)
--- NOTE | 2019-11-06 04:09 | EDM.PDOC ---
ED HPI GENERAL MEDICAL PROBLEM - General Chief Complaint: Abdominal Pain Stated Complaint: STOMACH PAIN Time Seen by Provider: 11/06/19 01:30 Source of Information: Reports: Patient History Limitations: Reports: No Limitations - History of Present Illness INITIAL COMMENTS - FREE TEXT/NARRATIVE: ED with c/o left flank and abominal pain since midnight. Sudden onset . no fever or chills. Slight nausea at onset improved now. No cough or ENT sx. 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: Other (see below) Other Treatments KICKBOXING INSTRUCTOR: Emergence-C Left Epigastric Pain Score (Numeric/FACES): 7 - Related Data Allergies Allergy/AdvReac Type Severity Reaction Status Date / Time tetracycline [Tetracycline] Allergy Nausea Verified 11/06/19 01:18 Home Meds: Home Meds Multivitamins [Tab-A-Leo] 1 tab PO DAILY 03/03/16 [History] Loratadine [Claritin] 10 mg PO DAILY 05/21/17 [History] Past Medical History - Past Health History Medical/Surgical History: Denies Medical/Surgical History HEENT History: Reports: None Cardiovascular History: Reports: None Respiratory History: Reports: None Gastrointestinal History: Reports: GERD Other Gastrointestinal History: constipation with rectal bleed Genitourinary History: Reports: None 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: Musculoskeletal History: Reports: None Neurological History: Reports: None Psychiatric History: Reports: Anxiety, Depression Endocrine/Metabolic History: Reports: None Hematologic History: Reports: None Immunologic History: Reports: None Oncologic (Cancer) History: Reports: None Other Dermatologic History: Rosacea, acne - Infectious Disease History Infectious Disease History: Reports: Chicken Pox - Past Surgical History Head Surgeries/Procedures: Reports: None HEENT Surgical History: Reports: Oral Surgery Cardiovascular Surgical History: Reports: None Respiratory Surgical History: Reports: None GI Surgical History: Reports: Cholecystectomy, Colonoscopy Female Surgical History: Reports: Section Endocrine Surgical History: Reports: None Musculoskeletal Surgical History: Reports: None Social & Family History - Family History Family Medical History: Noncontributory - Tobacco Use Smoking Status *Q: Former Smoker Years of Tobacco use: 10 Packs/Tins Daily: 1 Used Tobacco, but Quit: No - Caffeine Use Caffeine Use: Reports: Coffee, Energy Drinks, Soda, Tea - Recreational Drug Use Recreational Drug Use: No ED ROS GENERAL - Review of Systems Review Of Systems: Comprehensive ROS is negative, except as noted in HPI. ED EXAM, GI/ABD - Physical Exam Exam: See Below Exam Limited By: No Limitations General Appearance: Alert, No Apparent Distress Eyes: Bilateral: EOMI Ears: Normal External Exam Nose: Normal Inspection Throat/Mouth: Normal Inspection, Normal Voice Head: Atraumatic, Normocephalic Neck: Normal Inspection Respiratory/Chest: No Respiratory Distress, Lungs Clear Cardiovascular: Normal Peripheral Pulses, Regular Rate, Rhythm GI/Abdominal Exam: Normal Bowel Sounds, Soft, Tender (minimal left upper quad). No: Distended, Guarding Back Exam: Full Range of Motion, CVA Tenderness (L) Extremities: Normal Inspection, Normal Range of Motion Neurological: Alert, Oriented, Normal Cognition, Normal Gait Psychiatric: Normal Affect, Normal Mood Skin Exam: Warm, Dry, Intact, Normal Color Course - Vital Signs Last Recorded V/S: Last Vital Signs Temp 96.4 F 11/06/19 04:12 Pulse 63 11/06/19 04:12 Resp 14 11/06/19 04:12 BP 110/73 11/06/19 04:12 Pulse Ox 97 11/06/19 04:12 - Orders/Labs/Meds Labs: Laboratory Tests 11/06/19 11/06/19 11/06/19 Range/Units 02:00 02:00 02:00 WBC (5.0-10.0) 10^3/uL RBC (4.2-5.4) 10^6/uL Hgb (12.0-16.0) g/dL Hct (37.0-47.0) % MCV (80-100) fL MCH (27.0-34.0) pg MCHC (33.0-35.0) g/dL Plt Count (150-450) 10^3/uL Neut % (Auto) (42.2-75.2) % Lymph % (Auto) (20.5-50.1) % [place] % (Auto) (2-8) % Eos % (Auto) (1.0-3.0) % Baso % (Auto) (0.0-1.0) % Sodium (135-145) mmol/L Potassium (3.6-5.0) mmol/L Chloride (101-111) mmol/L Carbon Dioxide (21.0-31.0) mmol/L Anion Gap BUN (7-18) mg/dL Creatinine (0.6-1.3) mg/dL Est Cr Clr Drug Dosing mL/min Estimated GFR (MDRD) BUN/Creatinine Ratio Glucose (74-105) mg/dL Calcium (8.4-10.2) mg/dl Total Bilirubin (0.2-1.0) mg/dL AST (10-42) IU/L ALT (10-60) IU/L Alkaline Phosphatase (42-121) IU/L Total Protein (6.7-8.2) g/dl Albumin (3.2-5.5) g/dl Globulin Albumin/Globulin Ratio Amylase (28-100) U/L Lipase (22-51) U/L Urine Color Yellow (YELLOW) Urine Appearance Slightly cloudy (CLEAR) Urine pH 7.0 (5.0-9.0) Ur Specific [place] 1.010 (1.005-1.030) Urine Protein Negative (NEGATIVE) Urine Glucose (UA) Negative (NEGATIVE) Urine Ketones Negative (NEGATIVE) Urine Occult Blood Trace-intact H (NEGATIVE) Urine Nitrite Negative (NEGATIVE) Urine Bilirubin Negative (NEGATIVE) Urine Urobilinogen 0.2 (0.2-1.0) mg/dL Ur Leukocyte Esterase Negative (NEGATIVE) Urine RBC 0-5 /HPF Urine WBC Not seen (0-5/HPF) /HPF Ur Epithelial Cells Few (NOT SEEN) /HPF Amorphous Sediment Few (NOT SEEN) /HPF Urine Bacteria Rare (0-FEW/HPF) /HPF Urine Mucus Rare (NOT SEEN) /LPF Urine HCG, Qual Negative Urine Opiates Screen Negative (NEGATIVE) Ur Oxycodone Screen Negative (NEGATIVE) Urine Methadone Screen Negative (NEGATIVE) Ur Barbiturates Screen Negative (NEGATIVE) U Tricyclic Antidepress Negative (NEGATIVE) Ur Phencyclidine Scrn Negative (NEGATIVE) Ur Amphetamine Screen Negative (NEGATIVE) U Methamphetamines Scrn Negative (NEGATIVE) Urine MDMA Screen Negative (NEGATIVE) U Benzodiazepines Scrn Negative (NEGATIVE) Urine Cocaine Screen Negative (NEGATIVE) U Marijuana (THC) Screen Negative (NEGATIVE) 11/06/19 11/06/19 Range/Units 03:34 03:34 WBC 7.1 (5.0-10.0) 10^3/uL RBC 4.15 L (4.2-5.4) 10^6/uL Hgb 12.4 (12.0-16.0) g/dL Hct 37.1 (37.0-47.0) % MCV 89.4 (80-100) fL MCH 29.9 (27.0-34.0) pg MCHC 33.4 (33.0-35.0) g/dL Plt Count 267 (150-450) 10^3/uL Neut % (Auto) 67.9 (42.2-75.2) % Lymph % (Auto) 23.7 (20.5-50.1) % [place] % (Auto) 4.8 (2-8) % Eos % (Auto) 3.2 H (1.0-3.0) % Baso % (Auto) 0.4 (0.0-1.0) % Sodium 138 (135-145) mmol/L Potassium 3.3 L (3.6-5.0) mmol/L Chloride 105 (101-111) mmol/L Carbon Dioxide 25.0 (21.0-31.0) mmol/L Anion Gap 11.3 BUN 8 (7-18) mg/dL Creatinine 0.8 (0.6-1.3) mg/dL Est Cr Clr Drug Dosing 85.80 mL/min Estimated GFR (MDRD) > 60 BUN/Creatinine Ratio 10.00 Glucose 107 H (74-105) mg/dL Calcium 8.6 (8.4-10.2) mg/dl Total Bilirubin 0.7 (0.2-1.0) mg/dL AST 28 (10-42) IU/L ALT 45 (10-60) IU/L Alkaline Phosphatase 59 (42-121) IU/L Total Protein 6.6 L (6.7-8.2) g/dl Albumin 3.9 (3.2-5.5) g/dl Globulin 2.7 Albumin/Globulin Ratio 1.44 Amylase 32 (28-100) U/L Lipase 34 (22-51) U/L Urine Color (YELLOW) Urine Appearance (CLEAR) Urine pH (5.0-9.0) Ur Specific [place] (1.005-1.030) Urine Protein (NEGATIVE) Urine Glucose (UA) (NEGATIVE) Urine Ketones (NEGATIVE) Urine Occult Blood (NEGATIVE) Urine Nitrite (NEGATIVE) Urine Bilirubin (NEGATIVE) Urine Urobilinogen (0.2-1.0) mg/dL Ur Leukocyte Esterase (NEGATIVE) Urine RBC /HPF Urine WBC (0-5/HPF) /HPF Ur Epithelial Cells (NOT SEEN) /HPF Amorphous Sediment (NOT SEEN) /HPF Urine Bacteria (0-FEW/HPF) /HPF Urine Mucus (NOT SEEN) /LPF Urine HCG, Qual Urine Opiates Screen (NEGATIVE) Ur Oxycodone Screen (NEGATIVE) Urine Methadone Screen (NEGATIVE) Ur Barbiturates Screen (NEGATIVE) U Tricyclic Antidepress (NEGATIVE) Ur Phencyclidine Scrn (NEGATIVE) Ur Amphetamine Screen (NEGATIVE) U Methamphetamines Scrn (NEGATIVE) Urine MDMA Screen (NEGATIVE) U Benzodiazepines Scrn (NEGATIVE) Urine Cocaine Screen (NEGATIVE) U Marijuana (THC) Screen (NEGATIVE) Departure - Departure Time of Disposition: 04:04 Disposition: Home, Self-Care 01 Condition: Good Clinical Impression: Abdominal pain Qualifiers: Abdominal location: left upper quadrant Qualified Code(s): R10.12 - Left upper quadrant pain - Discharge Information *COPY OF PRESCRIPTION DRUG MONITORING REPORT IN PATIENT PHI: No Instructions: Abdominal Pain, Adult, [id number] Referrals: PCP,Unobtain [Primary Care Provider] - Forms: ED Department Discharge Additional Instructions: light diet today follow up vomiting, fever Sepsis Event Note - Evaluation Sepsis Screening Result: No Definite Risk - Focused Exam Date Exam was Performed: 11/07/19 Time Exam was Performed: 02:22
[2019-11-06 04:15] VITALS: BP 110/73; PULSE 63
== END 2019-11-06 04:15 | disposition home or self-care (01) ==
LOC: DL.ED 00:53
DX: R10.12 Left upper quadrant pain (principal); Z90.49 Acquired absence of other specified parts of digestive tract; Z98.890 Other specified postprocedural states; Z88.8 Allergy status to other drugs, medicaments and biological substances; Z87.891 Personal history of nicotine dependence
CPT/HCPCS: 36415; 74176; 80053; 80305-QW; 81001; 81025; 82150; 83690; 85025; 99284-25

== ENCOUNTER 2020-01-18 23:54 | Emergency (ER) | payer SELFPAY ==
[2020-01-19 00:12] VITALS: BP 140/75; PULSE 91
--- NOTE | 2020-01-19 00:31 | EDM.PDOC ---
ED HPI GENERAL MEDICAL PROBLEM - General Chief Complaint: Respiratory Problem Stated Complaint: POSSIBLE FLU Time Seen by Provider: 01/19/20 00:22 Source of Information: Reports: Patient History Limitations: Reports: No Limitations - History of Present Illness INITIAL COMMENTS - FREE TEXT/NARRATIVE: This 39 yo female patient reports to the ED due to nasal congestion, a sore throat, a cough and not feeling better after taking OTC medications. The patient reports she woke up this morning with nasal congestion which has been getting worse throughout the day. The patient reports she has also been having a sore throat. The patient reports she has not attempted to get into the clinic today. The patient also expresses concerns about the Coronavirus, but reports she has not traveled outside of [place] and has not been exposed to anyone diagnosed with the virus. 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 CONSULTANT: Reports: Acetaminophen, Other Medication(s) - Related Data Allergies Allergy/AdvReac Type Severity Reaction Status Date / Time tetracycline [Tetracycline] Allergy Nausea Verified 01/19/20 00:09 Home Meds: Home Meds Multivitamins [Tab-A-Leo] 1 tab PO DAILY 03/03/16 [History] Past Medical History - Past Health History Medical/Surgical History: Denies Medical/Surgical History HEENT History: Reports: None Cardiovascular History: Reports: None Respiratory History: Reports: None Gastrointestinal History: Reports: GERD Other Gastrointestinal History: constipation with rectal bleed Genitourinary History: Reports: None 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: Musculoskeletal History: Reports: None Neurological History: Reports: None Psychiatric History: Reports: Anxiety, Depression Endocrine/Metabolic History: Reports: None Hematologic History: Reports: None Immunologic History: Reports: None Oncologic (Cancer) History: Reports: None Other Dermatologic History: Rosacea, acne - Infectious Disease History Infectious Disease History: Reports: Chicken Pox - Past Surgical History Head Surgeries/Procedures: Reports: None HEENT Surgical History: Reports: Oral Surgery Cardiovascular Surgical History: Reports: None Respiratory Surgical History: Reports: None GI Surgical History: Reports: Cholecystectomy, Colonoscopy Female Surgical History: Reports: Section Endocrine Surgical History: Reports: None Musculoskeletal Surgical History: Reports: None Social & Family History - Family History Family Medical History: Noncontributory - Tobacco Use Smoking Status *Q: Current Every Day Smoker Years of Tobacco use: 15 Packs/Tins Daily: 0.5 - Caffeine Use Caffeine Use: Reports: Coffee, Soda - Recreational Drug Use Recreational Drug Use: No ED ROS GENERAL - Review of Systems Review Of Systems: Comprehensive ROS is negative, except as noted in HPI. ED EXAM, GENERAL - Physical Exam Exam: See Below Exam Limited By: No Limitations General Appearance: Alert, WD/WN, Anxious, Mild Distress Eye Exam: Bilateral Eye: EOMI, Normal Inspection, PERRL Ears: Normal External Exam, Normal Canal, Hearing Grossly Normal, Normal TMs Nose: Normal Inspection, Normal Mucosa, No Blood Throat/Mouth: Normal Inspection, Normal Lips, Normal Teeth, Normal Gums, Normal Oropharynx, Normal Voice, No Airway Compromise Head: Atraumatic, Normocephalic Neck: Normal Inspection, Supple, Non-Tender, Full Range of Motion Respiratory/Chest: No Respiratory Distress, Lungs Clear, Normal Breath Sounds, No Accessory Muscle Use, Chest Non-Tender Cardiovascular: Normal Peripheral Pulses, Regular Rate, Rhythm, No Edema, No Gallop, No JVD, No Murmur, No Rub GI/Abdominal: Normal Bowel Sounds, Soft, Non-Tender, No Organomegaly, No Distention, No Abnormal Bruit, No Mass (Female) Exam: Deferred Rectal (Female) Exam: Deferred Back Exam: Normal Inspection, Full Range of Motion, NT Extremities: Normal Inspection, Normal Range of Motion, Non-Tender, Normal Capillary Refill, No Pedal Edema Neurological: Alert, Oriented, CN II-XII Intact, Normal Cognition, Normal Gait, Normal Reflexes, No Motor/Sensory Deficits Psychiatric: Normal Affect, Normal Mood Skin Exam: Warm, Dry, Intact, Normal Color, No Rash Lymphatic: No Adenopathy Course - Vital Signs Last Recorded V/S: Last Vital Signs Temp 37.8 C 01/19/20 00:09 Pulse 91 01/19/20 00:09 Resp 20 01/19/20 00:09 BP 140/75 01/19/20 00:09 Pulse Ox 98 01/19/20 00:09 - Orders/Labs/Meds Orders: Active Orders 24 hr Category Date Time Status COMPREHENSIVE METABOLIC PN,CMP [CHEM] Urgent Lab 01/19/20 00:22 Ordered CULTURE STREP A CONFIRMATION [RM] Stat Lab 01/19/20 00:10 Results STREP SCRN A RAPID W CULT CONF [RM] Stat Lab 01/19/20 00:22 Ordered Isolation [COMM] Routine Oth 01/19/20 00:25 Ordered Labs: Laboratory Tests 01/19/20 Range/Units 00:33 WBC 10.1 H (5.0-10.0) 10^3/uL RBC 4.28 (4.2-5.4) 10^6/uL Hgb 12.9 (12.0-16.0) g/dL Hct 38.6 (37.0-47.0) % MCV 90.2 (80-100) fL MCH 30.1 (27.0-34.0) pg MCHC 33.4 (33.0-35.0) g/dL Plt Count 274 (150-450) 10^3/uL Neut % (Auto) 81.4 H (42.2-75.2) % Lymph % (Auto) 10.9 L (20.5-50.1) % [place] % (Auto) 4.8 (2-8) % Eos % (Auto) 2.6 (1.0-3.0) % Baso % (Auto) 0.3 (0.0-1.0) % Departure - Departure Time of Disposition: 00:51 Disposition: Home, Self-Care 01 Condition: Fair Clinical Impression: URI (upper respiratory infection) Qualifiers: URI type: unspecified URI Qualified Code(s): J06.9 - Acute upper respiratory infection, unspecified - Discharge Information *PRESCRIPTION DRUG MONITORING PROGRAM REVIEWED*: Not Applicable *COPY OF PRESCRIPTION DRUG MONITORING REPORT IN PATIENT PHI: Not Applicable Instructions: Upper Respiratory Infection, Adult, [id number] Forms: ED Department Discharge Care Plan Goals: The patient was advised of the examination and lab results during the visit. The patient was encouraged to continue to take over the counter medications for symptomatic relief. If the patient has any additional concerns about the Coronavirus the patient should call the [facility] Hotline at . If the patient has any additional symptoms or concerns, the patient should either visit her primary care facility or return to the emergency department. Sepsis Event Note - Evaluation Sepsis Screening Result: Possible Sepsis Risk - Focused Exam Vital Signs: Vital Signs Temp Pulse Resp BP Pulse Ox 01/19/20 00:09 37.8 C 91 20 140/75 98 Date Exam was Performed: 01/19/20 Time Exam was Performed: 00:51 - My Orders Last 24 Hours: My Active Orders 01/19/20 00:10 CULTURE STREP A CONFIRMATION [RM] Stat 01/19/20 00:22 COMPREHENSIVE METABOLIC PN,CMP [CHEM] Urgent STREP SCRN A RAPID W CULT CONF [RM] Stat 01/19/20 00:25 Isolation [COMM] Routine - Assessment/Plan Last 24 Hours: My Active Orders 01/19/20 00:10 CULTURE STREP A CONFIRMATION [RM] Stat 01/19/20 00:22 COMPREHENSIVE METABOLIC PN,CMP [CHEM] Urgent STREP SCRN A RAPID W CULT CONF [RM] Stat 01/19/20 00:25 Isolation [COMM] Routine
[2020-01-19 00:57] LABS: ANION GAP 14.8 mEq/L (7-13); CHLORIDE,CL 104 mmol/L (98-107); SODIUM,NA 141 mmol/L (136-145)
== END 2020-01-19 00:59 | disposition home or self-care (01) ==
LOC: DL.ED 23:54
DX: J06.9 Acute upper respiratory infection, unspecified (principal); F17.210 Nicotine dependence, cigarettes, uncomplicated; Z88.1 Allergy status to other antibiotic agents
CPT/HCPCS: 36415; 80053; 85025; 87081; 87430; 87804; 99282; 99283

== ENCOUNTER 2022-05-02 21:55 | Emergency (ER) | payer BC ==
[2022-05-02] MEDS ORDERED: Cephalexin 500 MG Cap PO ONE (23:00)
[2022-05-02 23:07] VITALS: BP 107/63; PULSE 65
== END 2022-05-02 23:16 | disposition home or self-care (01) ==
LOC: DL.ED 21:55
DX: H60.01 Abscess of right external ear (principal); F17.210 Nicotine dependence, cigarettes, uncomplicated; Z88.1 Allergy status to other antibiotic agents
CPT/HCPCS: 87070; 99283; A9270-GY

== ENCOUNTER 2022-08-27 17:29 | Emergency (ER) | payer BC ==
[2022-08-27 17:49] VITALS: BP 117/53; PULSE 70
[2022-08-27 18:45] LABS: CORONAVIRUS COVID-19 NAA NEGATIVE (NEGATIVE)
== END 2022-08-27 19:09 | disposition home or self-care (01) ==
LOC: DL.ED 17:29
DX: J01.90 Acute sinusitis, unspecified (principal); Z79.899 Other long term (current) drug therapy; Z88.1 Allergy status to other antibiotic agents; Z86.16 Personal history of COVID-19; Z90.49 Acquired absence of other specified parts of digestive tract; Z20.822 Contact with and (suspected) exposure to COVID-19
CPT/HCPCS: 0240U; 99283

== ENCOUNTER 2022-11-20 22:35 | Emergency (ER) | payer BC, MEDICAID ==
[2022-11-20 23:25] VITALS: BP 119/79; PULSE 88
[2022-11-20 23:57] LABS: CORONAVIRUS COVID-19 NAA NEGATIVE (NEGATIVE)
[2022-11-21] MEDS ORDERED: Amoxicillin/Clavulanate K 500-125 MG Tab PO ONE
== END 2022-11-21 00:15 | disposition home or self-care (01) ==
LOC: DL.ED 22:35
DX: J10.1 Influenza due to other identified influenza virus with other respiratory manifestations (principal); K21.9 Gastro-esophageal reflux disease without esophagitis; Z88.1 Allergy status to other antibiotic agents; Z79.899 Other long term (current) drug therapy; Z86.16 Personal history of COVID-19; Z20.822 Contact with and (suspected) exposure to COVID-19
CPT/HCPCS: 0240U; 99283; A9270

== ENCOUNTER 2023-05-21 21:43 | Emergency (ER) | payer BC, MEDICAID ==
[2023-05-21 21:51] VITALS: BP 129/83; PULSE 73
[2023-05-21] MEDS ORDERED: Sodium Chloride 0.9% 10 ML Syringe FLUSH PRN (22:01)
[2023-05-21] MEDS ORDERED: Ketorolac 30 MG/ML SDV IVPUSH ONE (22:01)
[2023-05-21 22:50] LABS: ANION GAP 15.8 mEq/L (7-13); BLOOD UREA NITROGEN,BUN 12 mg/dL (7-18); CARBON DIOXIDE,CO2 24 mmol/L (21-32); CHLORIDE,CL 105 mmol/L (98-107); CREATININE 0.91 mg/dL (0.55-1.02); EST CRCL DRUG DOSING (CG) 72.47 mL/min; GLUCOSE RANDOM 117 mg/dL (70-99); POTASSIUM,K 3.8 mmol/L (3.5-5.1); SODIUM,NA 141 mmol/L (136-145)
[2023-05-21 23:14] LABS: ESTIMATED GFR 81 mL/min (>=60)
== END 2023-05-21 23:49 | disposition home or self-care (01) ==
LOC: DL.ED 21:43
DX: R20.2 Paresthesia of skin (principal); R20.0 Anesthesia of skin; F17.210 Nicotine dependence, cigarettes, uncomplicated; K21.9 Gastro-esophageal reflux disease without esophagitis; Z86.16 Personal history of COVID-19; Z88.1 Allergy status to other antibiotic agents
CPT/HCPCS: 36415; 80048; 83735; 84484; 85379; 93005; 96374; 99285; J1885; J3490

== ENCOUNTER 2025-02-16 06:12 | Day surgery (SDC) | payer MEDICAID, OTHER ==
[2025-02-16] MEDS: Dextrose 5%-0.45% NaCl 1,000 ML IV SCH (06:42)
[2025-02-16] MEDS ORDERED: fentaNYL 100 MCG/2 ML SDV IV ONE (06:46)
[2025-02-16] MEDS ORDERED: Midazolam 1 MG/ML 2 ML SDV IV ONE (06:46)
[2025-02-16] MEDS ORDERED: fentaNYL 100 MCG/2 ML SDV ONE (06:46)
[2025-02-16] MEDS ORDERED: Midazolam 1 MG/ML 2 ML SDV ONE (06:46)
[2025-02-16] MEDS: fentaNYL 100 MCG/2 ML SDV IV ONE ×2 (07:01)
[2025-02-16] MEDS: Midazolam 1 MG/ML 2 ML SDV IV ONE ×2 (07:02)
[2025-02-16 08:48] VITALS: BP 110/71; PULSE 70
== END 2025-02-16 09:06 | disposition home or self-care (01) ==
LOC: DL.ENDO 06:12
PROVIDERS: ATTEND Internal Medicine Gastroenterology
DX: K22.70 Barrett's esophagus without dysplasia (principal); K31.7 Polyp of stomach and duodenum; D50.9 Iron deficiency anemia, unspecified; E73.9 Lactose intolerance, unspecified; K21.9 Gastro-esophageal reflux disease without esophagitis; F17.210 Nicotine dependence, cigarettes, uncomplicated; Z88.8 Allergy status to other drugs, medicaments and biological substances
CPT/HCPCS: 43239; 81025; J2250; J3010

== ENCOUNTER 2025-05-06 05:58 | Day surgery (SDC) | payer MEDICAID ==
[2025-05-06] MEDS: Lactated Ringers 1,000 ML IV SCH (06:37)
[2025-05-06 08:14] VITALS: BP 125/61; PULSE 59
== END 2025-05-06 08:20 | disposition home or self-care (01) ==
LOC: DL.ENDO 05:58
PROVIDERS: ATTEND Internal Medicine Gastroenterology
DX: D50.9 Iron deficiency anemia, unspecified (principal); K21.9 Gastro-esophageal reflux disease without esophagitis
CPT/HCPCS: 45378; 81025; J7120

== ENCOUNTER 2025-09-11 18:38 | Emergency (ER) | payer MEDICAID, OTHER ==
[2025-09-11 18:52] VITALS: BP 129/47; PULSE 60
[2025-09-11 19:16] LABS: APPEARANCE,URINE CLEAR (CLEAR); GLUCOSE,URINE NEGATIVE (NEGATIVE); OCCULT BLOOD,URINE NEGATIVE (NEGATIVE)
[2025-09-11] MEDS: Ondansetron 4 MG Tab.DIS PO ONE (19:19)
[2025-09-11 19:26] LABS: BASOPHILS PERCENT AUTO 0.4 % (0.0-1.0); EOSINOPHILS PERCENT AUTO 3.6 % (1.0-3.0); LYMPHOCYTES PERCENT AUTO 25.9 % (20.5-50.1); MONOCYTES PERCENT AUTO 6.9 % (2-8); NEUTROPHILS PERCENT AUTO 63.2 % (42.2-75.2); PLATELET COUNT,PLT 306 10^3/uL (150-450); RED BLOOD CELL COUNT 4.31 10^6/uL (4.2-5.4); WHITE BLOOD CELL COUNT,WBC 6.9 10^3/uL (5.0-10.0)
[2025-09-11 19:47] LABS: ALANINE AMINOTRANSFERASE,ALT 24.0 U/L (14-59); ASPARTATE AMNIOTRANSFERASE,AST 7.0 U/L (15-37); BILIRUBIN TOTAL 0.2 mg/dL (0.2-1.0); BLOOD UREA NITROGEN,BUN 11.0 mg/dL (7-18); CARBON DIOXIDE,CO2 26.0 mmol/L (21-32); CHLORIDE,CL 103.0 mmol/L (98-107); CREATININE 0.68 mg/dL (0.55-1.02); EST CRCL DRUG DOSING (CG) 91.17 mL/min; GLUCOSE RANDOM 93.0 mg/dL (70-99); POTASSIUM,K 3.6 mmol/L (3.5-5.1); PROTEIN TOTAL,TP 6.7 g/dL (6.4-8.2); SODIUM,NA 140.0 mmol/L (136-145)
[2025-09-11 19:48] LABS: A/G RATIO 0.97; ESTIMATED GFR 110.0 mL/min (>=60)
[2025-09-11] MEDS: Orphenadrine 60 MG/2 ML Inj IM ONE (20:07)
[2025-09-11] MEDS: Ketorolac 30 MG/ML SDV IM ONE (20:10)
[2025-09-11] MEDS: Take Home: Cyclobenzaprine 10 MG Tab, 4 Tab Pack PO ONE (20:38)
== END 2025-09-11 20:41 | disposition home or self-care (01) ==
LOC: DL.ED 18:38 → MERGE 18:38 → DL.ED 20:41
DX: S29.012A Strain of muscle and tendon of back wall of thorax, initial encounter (principal); Z90.49 Acquired absence of other specified parts of digestive tract; Z88.8 Allergy status to other drugs, medicaments and biological substances; X58.XXXA Exposure to other specified factors, initial encounter
CPT/HCPCS: 36415; 80053; 81003; 85025; A9270; J1885; J2360; 96372; 99283; 99284

== ENCOUNTER 2025-09-24 05:02 | Emergency (ER) | payer MEDICAID ==
[2025-09-24 05:20] LABS: GLUCOSE,URINE NEGATIVE (NEGATIVE); OCCULT BLOOD,URINE LARGE (NEGATIVE)
[2025-09-24 05:21] LABS: APPEARANCE,URINE CLOUDY (CLEAR)
[2025-09-24 05:30] LABS: EPITHELIAL CELLS,URINE FEW /HPF (NOT SEEN)
[2025-09-24 05:36] VITALS: BP 117/70; PULSE 67
[2025-09-24] MEDS ORDERED: Phenazopyridine 95 MG Tab PO ONE (05:37)
[2025-09-24] MEDS: Take Home: Sulfamethoxazole/Trimethoprim 800-160 MG Tab, 6 Tab Pack PO ONE (05:50)
== END 2025-09-24 05:48 | disposition home or self-care (01) ==
LOC: DL.ED 05:02
DX: N39.0 Urinary tract infection, site not specified (principal); K21.9 Gastro-esophageal reflux disease without esophagitis; Z86.16 Personal history of COVID-19; Z88.8 Allergy status to other drugs, medicaments and biological substances; Z79.899 Other long term (current) drug therapy
CPT/HCPCS: 81001; 81025; 87086; 87088; 87186; 99283; A9270

== ENCOUNTER 2025-10-16 23:37 | Emergency (ER) | payer MEDICAID ==
[2025-10-17 03:36] VITALS: BP 129/75; PULSE 68
== END 2025-10-17 03:26 | disposition home or self-care (01) ==
LOC: DL.ED 23:37
DX: S00.83XA Contusion of other part of head, initial encounter (principal); F17.210 Nicotine dependence, cigarettes, uncomplicated; E66.9 Obesity, unspecified; K21.9 Gastro-esophageal reflux disease without esophagitis; Z79.899 Other long term (current) drug therapy; Z88.0 Allergy status to penicillin; Z86.16 Personal history of COVID-19; Y09 Assault by unspecified means
CPT/HCPCS: 70486; 70490; 81025; 99283; 99284; A9270